=== PATIENT | male | born 2000 | race Caucasian/White ===

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

== ENCOUNTER 2022-02-15 17:46 | Emergency (ER) | payer MEDICAID, SELFPAY ==
[2022-02-15 17:46] VITALS: BP 132/79; PULSE 88; RESP 16; TEMP 36.6; O2SAT 97
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
[2022-02-15 20:10] VITALS: BP 123/76; PULSE 58; RESP 18; O2SAT 100
== END 2022-02-15 20:12 | disposition home or self-care (01) ==
PROVIDERS: Emergency Provider Physician Assistant
DX: R45.89 Other symptoms and signs involving emotional state (principal); Z73.9 Problem related to life management difficulty, unspecified
CPT/HCPCS: 99283; 99282

== ENCOUNTER 2022-04-20 14:42 | Outpatient (CLI) | payer MEDICAID, SELFPAY ==
[2022-04-20 14:46] LABS: Abs Immature Grans 0.01 10^3/uL (0.0-0.06); Absolute Basophil Count 0.03 10^3/uL (0.0-0.2); Absolute Eosinophil Count 0.23 10^3/uL (0.0-0.7); Absolute Lymphocyte Count 1.22 10^3/uL (1.2-3.4); Absolute Monocyte Count 0.72 10^3/uL (0.1-0.8); Absolute Neutrophil Count 6.31 10^3/uL (1.2-6.7); Basophils % 0.4; ESR 2 mm/hr (0-15); Eosinophils % 2.7; HCT 44.8 % (40.0-50.0); HGB 15.1 g/dL (13.5-17.5); Immature Grans % 0.1; Lymphocytes % 14.3; MCHC 33.7 % (32.0-36.0); MCV 86 fL (80-95); MPV 11.5 fL (8.0-11.0); Monocytes % 8.5; Platelet Count 213 10^3/uL (130-400); RDW 12.6 % (11.8-14.1); RDW-SD 39.7 fL; WBC 8.52 10^3/uL (4.4-10.8)
[2022-04-20 15:10] LABS: ALT 53 U/L (16-63); AST 34 U/L (15-37); Albumin 4.3 g/dL (3.4-5.0); Alkaline Phosphatase 108 U/L (46-116); Anion Gap 9.3 mmol/L (3-11); BUN 12 mg/dL (7-18); Bilirubin, Total 0.6 mg/dL (0.2-1.0); C-Reactive Protein 0.85 mg/dL (0.0-0.3); CO2 29.7 mmol/L (21.0-32.0); Calcium 9.4 mg/dL (8.5-10.1); Chloride 105 mmol/L (98-107); Glucose 108 mg/dL (74-106); Potassium 4.6 mmol/L (3.5-5.1); Sodium 144 mmol/L (136-145); TSH (W/Ref FT4) 1.58 uIU/mL (0.52-4.13); Total Protein 8.1 g/dL (6.4-8.2)
== END 2022-04-20 14:43 | disposition home or self-care (01) ==
LOC: LBO 14:43
PROVIDERS: Visit Provider Student in an Organized Health Care Education/Training Program
DX: R63.4 Abnormal weight loss (principal); R10.9 Unspecified abdominal pain; R19.7 Diarrhea, unspecified
CPT/HCPCS: 36415; 80053; 85652; 84443; 85025; 86140

== ENCOUNTER 2022-06-21 16:50 | Emergency (ER) | payer MEDICAID, SELFPAY ==
[2022-06-21 17:04] VITALS: BP 129/85; PULSE 81; RESP 20; TEMP 36.9; O2SAT 98
--- NOTE | 2022-06-21 17:26 | W.ED.GENAD ---
Discharge Plan Disposition Patient Disposition: STILL A PATIENT Condition: Stable Discharge Details Chief Complaint: PsychEval Clinical Impression: Depression with suicidal ideation Primary Care Provider: Zee Gupta ED Provider: Nilson Gonzalez Home Meds and New Rx's Prescriptions: No Action omeprazole 20 mg capsule,delayed release(DR/EC) 20 mg PO DAILY Qty: 60 0RF Label Comments: does not take / short term use Medical Decision Making This is a 22-year-old male presenting with local law enforcement and a crisis team after being called to his home with a warrant to bring him to the ER for involuntary placement secondary to depression, SI with a plan of self-harm with knives. Unfortunately patient is a rather vague and poor historian and much of this information was gathered collaterally. He does admit that he made statements of harming himself and ending it all via text. He has no acute medical concerns or complaints. Using the smart clearance form, laboratory values not indicated. COVID swab no longer required for psychiatric admission. I have requested a mental health evaluation, interim care plan, and a CPSO. All appropriate involuntary certification paperwork completed. I was contacted by mental health who states that they already completed their evaluation at the house, he needs to be medically cleared, and then they will move forward with the psychiatric evaluation and eventual placement.patient is medically cleared. I was contacted once again by the mental health team and Dr. Hilton, psychiatry, after they had completed their second evaluation. He will remain in an involuntary psychiatric placement Patient has tolerated p.o. liquids and was seen ambulating steadily to the restroom. This documentation was generated using [employer] dictation system, please disregard any oddities of phrase or misspellings. Medical Records Medical records reviewed: Yes I reviewed the patient's medical records. HPI General Mode of arrival: ambulatory (With law enforcement). Date/Time Provider Initiated Documentation: 06/21/22 17:15. Limitations to Documentation: no limitations. Information obtained by: patient. HPI Narrative: This is a 22-year-old gentleman who presents to the ER with law enforcement and mental health crisis team for evaluation of depression, SI, with a plan to cut himself with knives. Unfortunately he is a rather vague and poor historian, elusive with answering most of my questions. The majority of the collateral information was obtained through the [facility] crisis team. They state that they have seen a deterioration overall over the past few months, most recently today locked himself in the bedroom with denies, threatened to harm himself, and would not come out until the police had to get into the doorway. Patient tells me that he got into an argument with his mother today and simply went upstairs to fall asleep. He states that he texted that he would harm himself but tells me he did not have any intentions to actually harm himself. He denies trying to harm himself in the past. He denies any acute medical concerns or complaints. Denies recent illness or trauma. Patient denies any self-harm Related Data Home Medications Medication Instructions Recorded Confirmed omeprazole 20 mg capsule,delayed 20 mg PO DAILY #60 caps 04/24/22 04/24/22 release Previous Rx's Medication Instructions Recorded omeprazole 20 mg capsule,delayed 20 mg PO DAILY #60 caps 04/24/22 release Allergies Allergy/AdvReac Type Severity Reaction Status Date / Time pollen extracts Allergy Intermediate HIVES Verified 06/21/22 20:39 cantaloupe Allergy Severe PROBLEMS Uncoded 06/21/22 20:39 BREATHING Fresh Cut Grass Allergy Hives Uncoded 06/21/22 20:39 General Stated Complaint: PsychEval USMAN: 2 Review of Systems Constitutional Constitutional: Denies fever(s), Denies headache(s) and Denies weakness ENT Ears, Nose, Mouth, and Throat: Denies headache(s) Cardiovascular Cardiovascular: Denies chest pain and Denies dyspnea Respiratory Respiratory: Denies cough and Denies dyspnea Gastrointestinal Gastrointestinal: Denies abdominal pain, Denies nausea and Denies vomiting Musculoskeletal Musculoskeletal: Denies back pain Integumentary/Breasts Skin/Breast: Denies rash Neurologic Neurologic: Denies headache(s) and Denies weakness Psychiatric Psychiatric: Reports depression, Denies homicidal ideation and Reports suicidal ideation [facility] All Active Problems (Updated 06/21/22 @ 21:27 by MAISHA Gonsalez) Depression with suicidal ideation (Acute) Weight loss (Acute) Dysthymia (Chronic 02/20/17) mild depression - counseling as a start 02/23 Eczema (Chronic 11/21/15) Environmental allergies (Chronic 11/21/15) grass Food allergy (Chronic 01/04/16) clinical cantaloupe reaction, negative skin test Mild intermittent asthma without complication (Chronic 11/21/15) spirometry 12/23- mild obstruction 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) Family History Mother Mental disorder ANXIETY/DEPRESSION Father Mental disorder ANXIETY/DEPRESSION Grandparents Mental disorder MGF DEPRESSION MGM ANXIETY Social History Smoking/Tobacco Use Status: Never Second Hand Exposure: Yes Smoking risk assessment performed?: Yes Alcohol Intake: never Drug use: Occasionally Substance use type: marijuana Household members: family Pets and animals: Yes Pets and animals: cat(s) Do you feel safe at home: Yes Do you feel safe in your relationship?: Yes Exam Const General: cooperative, healthy appearing, comfortable and no acute distress Orientation: alert, awake and oriented x3 HENMT Head: normal to inspection, normocephalic and atraumatic Face and sinus: normal facial exam Mouth: moist mucous membranes Eyes General: appearance normal, both eyes and all related structures Conjunctivae: conjunctivae normal Neck Neck: normal visual inspection, full ROM, no meningeal signs, trachea midline and supple Resp Effort & Inspection: normal respiratory effort and able to speak in complete sentences Auscultation: clear to auscultation bilaterally Cardio Rate: regular rate Rhythm: regular rhythm GI Palpation: soft and nontender Back/Spine/Pelvis Back: No back tenderness Skin General skin exam: no rashes or lesions noted Neuro General: patient alert, patient awake, patient oriented x3, moves all extremities and no focal motor deficits Cognition: normal cognition Speech: speech normal Gait: normal gait Motor: muscle tone normal throughout Sensory Exam: no sensory deficits noted Extrem General: normal to inspection, full ROM and capillary refill normal Psych Appearance: grossly normal Mental Status: mental status grossly normal Speech and Movement: speech and movement normal Mood: dysthymic mood Affect: sad Attitude: guarded and avoids eye contact Thought Process: normal Thought Content: suicidality Insight: fair Judgment: fair Course Vital Signs Vital signs: Vital Signs Temperature 36.9 C 06/21/22 17:04 Pulse 81 06/21/22 17:04 Respiratory Rate 20 06/21/22 17:04 Blood Pressure 129/85 06/21/22 17:04 Pulse Oximetry 98 06/21/22 17:04 Temperature 36.9 C 06/21/22 17:04 Temperature Source Temporal Artery Scan 06/21/22 17:04 Pulse 81 06/21/22 17:04 Respiratory Rate 20 06/21/22 17:04 Respiratory Effort Non-Labored 06/21/22 17:18 Blood Pressure 129/85 06/21/22 17:04 Blood Pressure Position Sitting 06/21/22 17:04 Pulse Oximetry 98 06/21/22 17:04 Oxygen Delivery Method Room Air 06/21/22 17:04 Oxygen Flow Rate 0 06/21/22 17:04 Pain Level 0 06/21/22 17:04
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
--- NOTE | 2022-06-21 19:46 | NUR.NOTE ---
Nursing Note: Pt politely asked if he was able to get a remote and watch tv. CPSO asked RN if that was a possibility, RN gave permission for access to tv but CPSO had to keep and control the remote. Pt was agreeable with that.
--- NOTE | 2022-06-21 23:45 | RT.EKG_ITS ---
APPROVED REPORT Exam: Resting ECG Reason for Exam: chest pain Patient Location: E HR:50 bpm ECG Measurements Heart Rate 50 AXIS AK 166 P 48 QRSd 86 QRS 39 QT 434 T 49 QTc 397 Conclusion Slow sinus arrhythmia...V-rate 42- 64, mean< 60 Atrial premature complex...SV complex w/ short R-R interval Physiican: no stemi
[2022-06-22] MEDS: diphenhydrAMINE 25 MG CAP 50 MG PO (00:14)
[2022-06-22] MEDS: Melatonin 3 MG TAB 6 MG PO (00:14)
[2022-06-22 00:25] LABS: *AMPHETAMINES SCREEN URINE Negative (Negative); *BARBITURATES SCREEN URINE Negative (Negative); *BENZODIAZEPINES SCREEN URINE Negative (Negative); Cannabinoids THC Positive (Negative); Cocaine Screen,Urine Negative (Negative); METHADONE URINE SCREEN Negative (Negative); OPIATES URINE SCREEN Negative (Negative); Tricyclic Antidepressants Negative (Negative)
[2022-06-22 09:56] LABS: Source Nasal/Nares
--- NOTE | 2022-06-22 10:17 | NUR.NOTE ---
patient wanted to speak with underwriter solicitation director about his concerns for missing a day of work while being in the ED. This underwriter solicitation director gave him options of using a phone to contact the HR department at his job and speak to them about FMLA options. Patient refused a phone he stated I just want to go to work so I don't lose my job. Being here (In the ED) is making my life worse not better
[2022-06-22 10:29] LABS: COVID-19 PCR Negative (Negative)
--- NOTE | 2022-06-22 11:40 | PDOC.CMSAFED ---
- If Service Date Differs Date of service: 06/22/22 Time of Service: 11:48 Care Management Safety Plan Status: Involuntary - Reason for Wait Reason for Wait: Inpatient Admission INVOLUNTARY FOR INPATIENT PSYCHIATRIC STABILIZATION. Per [facility]: Client was brought in on a MH warrant for suicidal ideation. Client locked himself in his room, with knives, and told his mother he was going to off himself. Client was last seen by [facility] on 05/21/22 and safety planned home. Client is not following through with his out patient resources. Toby was appropriate throughout the night and day, he has become dysregulated at times central to stress about losing his job and wanting to leave [facility]; being held against his will. Overall, he has demonstrated the ability to self regulate when upset. He became escalated in tone and speech with [facility] screener and MD; was able to regulate. Appears Toby could benefit from coping skill development as he struggles with emotional expression, however he is exhibiting ability to self regulate as needed, thus far. INVOLUNTARY Safety plan has been established to meet the needs of the patient, and consideration of the care team, to adhere to patient goals, identify restrictions based on behavioral status, address nutrition, and determine allowed personal belongings, tools for hygiene and personal care. Determine level of activity including ambulation, level of supervision, visitors, and determine privileges based on behaviors and level of engagement by pt. INVOLUNTARY SAFETY PLAN: 1. Will remain on SI/HI precautions. In Paper Clothes 2. Will remain in room under direct supervision of one-on-one staff at all times provided by [employer]; FLOOR SPECIALIST, EXTRUSION DIE TEMPLATE MAKER dehydrator tender. 3. May have paper cups, plates, finger foods as well as a cardboard spoon for meals. 4. Follow [facility] Management of the Admitted Behavioral Health Patient policy. 5. Comfort bath system, shower permitted at RN discretion, with escort. 6. No personal belongings at this time. 7. Visitors: Permitted per patients wishes at RN discretion. 8. Activities: Soft cart items, television and remote permitted per RN discretion. 9. Bathroom privileges with escort in the ED, available in room without limitation on Med/Surg 10. Phone: Use of cordless [facility] phone available at RN discretion. 11. Due to INVOLUNTARY status, patient is being held at [facility] by the Department of Mental Health (DMH) until 2nd certification by [facility] Psychiatrist can be performed (within 24 hours). Staff will provide de-escalation support (CPI) as needed. If patient wishes to leave [facility], staff will contact [facility] Crisis Screener ([phone]) and On-Call Drop Crew Laborer ([phone]) as soon as possible. In the event of elopement, notify [facility] Police ([phone]). Patient is currently involuntarily at [facility]. [facility] Frontline Visual Supervisor will continue seeking placement. Please contact the Code Machine Operator Drop Crew Laborer ([phone]) for any needed changes to Safety Plan. Safety plan has been provided to interdepartmental care team. Patient will be transported by [employer] at time of discharge.
--- NOTE | 2022-06-22 11:42 | PDOC.MHPN2 ---
Date of service: 06/22/22 Time of Service: 10:52 PHQ-9 Over the last 2 weeks, how often have you been bothered by any of the following problems? 1. Little interest or pleasure in doing things: not at all 2. Feeling down, depressed, or hopeless: several days 3. Trouble falling or staying asleep, or sleeping too much: not at all 4. Feeling tired or having little energy: not at all 5. Poor appetite or overeating: not at all 6. Feeling bad about yourself - or that you are a failure or have let yourself and your family down: not at all 7. Trouble concentrating on things, such as reading the newspaper or watching television: not at all 8. Moving or speaking so slowly that other people could have noticed? - Or the opposite - being so fidgety or restless that you have been moving around a lot more than usual: not at all 9. Thoughts that you would be better off or of hurting yourself in some way: several days Total score: 2 Source: Developed by Drs. Walker Kraft, Lien Martino, Rajesh Stafford and colleagues, with an educational deni from [employer]. Mental Health Emergency Note Release [facility] release signed:: Yes Reason for Visit Client presented to [facility] ED on 06/21/22 via [facility] and embedded MH worker Lo Yeager after a MH warrant was executed. Client was seen on 06/21 for 2nd certification by psychiatrist from [facility]. In the last 2 weeks has the pt presented for ES prior to today?: Unknown Client Information Client is: Children's Well Housed: Yes Non Suicidal Self Injury Current: No History: yes, Client reports past history of NSSIB's; eg. client reports punching santacruz and smashing his head into santacruz in response to his anger. Safety Risk/Harm to Self or Others Current Ideation to Harm Self or Others: No Asssessment/Mental Status Appearance: Disheveled and Poor hygiene Attitude: Guarded and Hostile (Client became esclated shortly into screening and began yelling and screaming at this scientific technical writer screening was conclued ) Behavior: Agitated Speech: Pressured and Loud Affect: Cogruent with mood Mood: Elevated, Stressed, Anxious and Angry Thought process: Goal directed (Client kept stating he was wanting to leave in order to go to work ) Hallucinations: No evidence Delusions: No evidence Attention: Poor concentration Perception: Not impaired Orientation: Fully orientated Memory: Intact Insight: Fair Judgement: Fair Neurovegetative Symptoms Sleep: Decrease (Client reports he did not fucking sleep last night due to this damn fan) Appetitie: No change (Client reports eating dinner and breakfast since being in ED) Interests: No change Energy: No change Libido: Not applicable Substance Use: Other (This scientific technical writer was unable to assess due to client being escalater ) Impression Client is currently at [facility] ED on involuntary status. Client was brought to ED by VSP on MH warrant on 06/22. Prior to speaking with client, this scientific technical writer gathered collateral from client's attending nurse Charity Barnard. Per Akil's report, this am, client ate his breakfast. Akil reports client disclosed to her that he is worried about losing his job. Akil reports she suggested filling out paperwork for FMLA, Maciej reports client declined her suggestion. Akil reports client has been appropriate behavioral otherwise. This scientific technical writer attempted to reassess client via zoom while client was at [facility] ED. Client denies he is actively endosring SI/HI/NSSI. Client reports, everything is fine I am just super stressed I am about to lose my job. Client reports, I didn't mean what I said to my mom yesterday about killing myself I was just angry. This scientific technical writer asked client if he understood the severity of stating these types of statements. Client reports he does. Client was willing to engage with this scientific technical writer at first, however shortly into the conversation client became escalated a began screaming and sweating at this scientific technical writer. Client reported to this scientific technical writer, you are running my life keeping me here, I am going to lose my job and you don't fucking care. Client went on the further state, I am not staying her another night, if you think I am you're the crazy one, I am going home. This scientific technical writer explained to client that leaving the ED was not an option at this time and if he were attempt to leave AMA, he would be brought back to [facility] and the process for addmission would restart making it longer for client to be placed for MH tx. At this point in the conversation client refused to speak with MH. This scientific technical writer asked for client to bring tablet out to attending provider. After attempting to screen client, this scientific technical writer requested to speak to attending MD. This scientific technical writer spoke with Dr. Kinza Bautista. This scientific technical writer informed Dr. Bautista this scientific technical writer was unable to complete the entirety of assessment due to client becoming escalated. Dr. Bautista responded that when speaking with this scientific technical writer he confirms the client is escalated and just heard him scream from his room. This scientific technical writer informed Dr. Bautista referral will be sent out for placement for client. This scientific technical writer also informed Dr. Bautista to reach back out to if client is requesting to resume screening with ES later in the day. Plan/Disposition Recommended Disposition: Hospitalization facilities contacted. Plan: Client will await in ED until placement can be secured. Person reported agreement to plan: No Facilities contacted if Applicable [facility] Accepted, Pending review. Information Sent to [place]: Referral [facility] Not accepted, Only accepting in house referrals [facility] Accepted, Pending review. Information Sent to [place]: Referral, [facility] Accepted, Accepted/transfer pending. Information Sent to [place]: Referral Reports/communication Outcome discussed with: ED/Personnel (Dr. Kinza Bautista)
--- NOTE | 2022-06-22 14:49 | W.EDPROG ---
Date of service: 06/22/22 Time of Service: 14:49 Medical Decision Making Care was signed out by Dr. Obando with plan to await transfer to inpatient psychiatric treatment facility. Patient upset that he is being held here against his will. Patient requested speaking to the [facility] psychiatrist who performed EE evaluation yesterday. I spoke with care worker Arnoldo at [facility] and relayed this request and was informed that this was not a possibility. Patient request was declined. Mr. Mcdaniels did suggest referring the patient to disability rights and ammonia refrigeration worker at legal activity adjudicator should the patient have questions. Sign Out Sign Out Data: Sign Out Comment: Depression with SI. Medically cleared and mental health evaluation completed. Patient is a involuntary hold until placement can be found Last updated by Nilson Gonzalez PA at 06/21/22 21:27 Sign Out Comment: Depression with suicidal ideations. Patient stable throughout the night. Pending placement. Patient involuntary Last updated by Scotty Obando DO at 06/22/22 07:26 Discharge Plan Disposition Patient Disposition: STILL A PATIENT Condition: Stable Discharge Details Clinical Impression: Depression with suicidal ideation Primary Care Provider: Zee Gupta ED Provider: Min Bautista Home Meds and New Rx's Prescriptions: No Action omeprazole 20 mg capsule,delayed release(DR/EC) 20 mg PO DAILY Qty: 60 0RF Label Comments: does not take / short term use
[2022-06-22] MEDS: LORazepam 1 MG TAB 2 MG PO (19:29)
[2022-06-22 21:12] VITALS: BP 121/79; PULSE 85; RESP 20; TEMP 36.3; O2SAT 93
[2022-06-22] MEDS: diphenhydrAMINE 25 MG CAP PO (22:10)
--- NOTE | 2022-06-23 10:26 | NUR.NOTE ---
Nursing Note: Pt is upset and crying because he is not able to get through to his mother on the phone. Attempted to de-escalate, offer comfort items/food which pt refused. Awaiting morning check in w/ MH
--- NOTE | 2022-06-23 11:02 | PDOC.CMSAFED ---
- If Service Date Differs Date of service: 06/23/22 Time of Service: 11:02 Care Management Safety Plan Status: Involuntary INVOLUNTARY FOR INPATIENT PSYCHIATRIC STABILIZATION. Per [facility]: Client was brought in on a MH warrant for suicidal ideation. Client locked himself in his room, with knives, and told his mother he was going to off himself. Client was last seen by [facility] on 05/21/22 and safety planned home. Client is not following through with his out patient resources. Therefor, Client presented to [facility] ED on 06/21/22 via VSP and embedded MH worker Lo Yeager after a MH warrant was executed. Client was seen on 06/21 for 2nd certification by psychiatrist from [facility] [place] [facility]. INVOLUNTARY Safety plan has been established to meet the needs of the patient, and consideration of the care team, to adhere to patient goals, identify restrictions based on behavioral status, address nutrition, and determine allowed personal belongings, tools for hygiene and personal care. Determine level of activity including ambulation, level of supervision, visitors, and determine privileges based on behaviors and level of engagement by pt. INVOLUNTARY SAFETY PLAN: 1. Will remain on SI/HI precautions. In Paper Clothes 2. Will remain in room under direct supervision of one-on-one staff at all times provided by [employer]; INGRID, PROFESSOR OF ENVIRONMENTAL SCIENCE welding estimator. 3. May have paper cups, plates, finger foods as well as a cardboard spoon for meals. 4. Follow [facility] Management of the Admitted Behavioral Health Patient policy. 5. Comfort bath system, shower permitted at RN discretion, with escort. 6. No personal belongings at this time. 7. Visitors: Permitted per patients wishes at RN discretion. 8. Activities: Soft cart items, television and remote permitted per RN discretion. 9. Bathroom privileges with escort in the ED, available in room without limitation on Med/Surg 10. Phone: Use of cordless [facility] phone available at RN discretion. 11. Due to INVOLUNTARY status, patient is being held at [facility] by the Department of Mental Health (DM) until 2nd certification by [facility] Psychiatrist can be performed (within 24 hours). Staff will provide de-escalation support (CPI) as needed. If patient wishes to leave [facility], staff will contact [facility] Crisis Screener ([phone]) and On-Call Examiner Rating Clerk ([phone]) as soon as possible. In the event of elopement, notify [facility] Police ([phone]). Patient is currently involuntarily at [facility]. [facility] Frontline Door And Arrival Attendant will continue seeking placement. Please contact the Assistant Banquet Manager Examiner Rating Clerk ([phone]) for any needed changes to Safety Plan. Safety plan has been provided to interdepartmental care team. Patient will be transported by cash manager at time of discharge.
[2022-06-23] MEDS: diphenhydrAMINE 25 MG CAP 50 MG PO (22:12)
--- NOTE | 2022-06-23 22:18 | NUR.NOTE ---
Nursing Note: PT's mother: Tori Lalai [address] [place] [phone].
[2022-06-23] MEDS: Acetaminophen 500 MG TAB ×2 (23:04→23:05)
--- NOTE | 2022-06-24 06:57 | NUR.NOTE ---
Nursing Note: Patient stated he is sick and tired of being in this f'ing place and they are still going to make me get treatment for a mental illness he doesn't have and that he is done being f'ing nice! Patient stated that he wants to talk to a mental health worker and his mother.
--- NOTE | 2022-06-24 08:37 | NUR.NOTE ---
Patient speaking to mother on phone. Patient informing mother that he lost his job and is no longer able to afford his bills. Patient telling mother he does not need to be hospitalized and that she is wrong. Patient stating that his text was an empty threat and that he didn't mean it and fell asleep shortly after sending text. Patient also feels as though staff does not care about patient's needs and that he needs to come home and work on finding a therapist and receiving medications from his PCP. Patient states please be on my side, don't let them hospitalize me. I can't do that.
--- NOTE | 2022-06-24 10:06 | NUR.NOTE ---
Min patient's father called looking for an update. Father is not on his hippa form. patient refused to speak to father. Father left his cell number [phone]
[2022-06-24] MEDS: LORazepam 0.5 MG TAB PO ×2 (11:26→17:10)
--- NOTE | 2022-06-24 13:35 | PDOC.MHPN2 ---
Date of service: 06/24/22 Time of Service: 10:00 Mental Health Emergency Note Release [facility] release signed:: Yes Reason for Visit Client presented to [facility] ED on 06/21/22 via VSP and [facility] embedded worker Lo Yeager after a MH warrant was executed. Client was seen in the evening on 06/21/22 by , psychiatrist from [facility] where his 2nd certification passed. Client is currently on involuntary status and is seen this morning for daily re-assessment. In the last 2 weeks has the pt presented for ES prior to today?: No Client Information Client is: Children's Well Housed: Yes Non Suicidal Self Injury Current: No History: No Safety Risk/Harm to Self or Others Current Ideation to Harm Self or Others: Yes to self. Intent: no, has no intent. Plan: no.does not have a plan. History of suicide attempt: No history of suicide attempt reported Risk: Does risk to harm exist?: yes. Risk: Moderate Risk Duty to warn indicated: No Asssessment/Mental Status Appearance: Disheveled Attitude: Guarded Behavior: Agitated Speech: Normal Affect: Flat and Cogruent with mood Mood: Elevated, Stressed, Depressed and Irritable Thought process: Racing Hallucinations: No Delusions: No Attention: Unremarkable Perception: Not impaired Orientation: Fully orientated Memory: Intact Insight: Fair Judgement: Fair Neurovegetative Symptoms Sleep: Decrease (Client reports that he has needed to take medications to help him sleep since being at the hospital. ) Appetitie: No change Interests: No change Energy: No change Libido: Not applicable Substance Use: Do you use nicotine?: No Have you used substances in the last 7 days?: No Additional Issues: Assaultive/Threatening Behavior: No Medical Concerns: No Client engaged in active self harm w/weapon: No Threatening to run away: Yes Child reported abuse/neglect: No Voluntarily presenting for services: No Domestic violence is a concern: No Extreme Psychosis or extreme behavior is present: No Impression Client is a 22 y/o single caucasion male that currently lives with his mother and siblings in [place], [place]. 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 Client presents with symptoms that are congruent with depression as evidenced by a decrease in sleep and lack of interest in doing things that he typically enjoys doing. Client is inconsistent in his answers on family dynamics with his mother stating: it is her own mental health and nothing to do with me. She pushes me over the edge. This flex o writer operator asks client about 2 page suicide note that he had written and handed to his 10y/o sibling about a week ago. Client reports: I did not mean what I said in the letter, but it felt good to get it off from my chest. Client reports he would never do anything to harm himself unless something traumatic happened to one of his family members. Client is beginning to take ownership of events that occured prior to him coming to [facility] on mental helath warrant, however is still not taking full ownership and blaming others for his actions. Client would benefit from inpateint services for medication management, therapy, and to establish coping skills that he can utilize when he is escalted and angry with things that are happening at home. Plan/Disposition Recommended Disposition: Hospitalization (Referrals have been faxed to [facility], [facility], , and [facility] ) facilities contacted. Plan: Client is beginning to take owenership of actions that brought him to [facility] ED on MH warrant, however is still blaming other family members for what took place and believes that they are blowing it out or proportion. Client will remain at [facility] ED on involuntary status pending admission to an inpatient facility. If client continues to show improved insight and judgment safety planning home could be explored within the next few days. Person reported agreement to plan: No Facilities contacted if Applicable [facility] Not accepted, (Referral under review, however currently no beds available) No bed available [facility] Not accepted, Only accepting in house referrals [facility] (under review) Not accepted, No bed available, [facility] Not accepted, [facility] Reports/communication Outcome discussed with: ED/Personnel (Verbal passover given to ED provider Jero) Final Disposition/Discharge Transportation Checklist completed and faxed: No
--- NOTE | 2022-06-24 14:30 | CMSP_ITS ---
- If Service Date Differs Date of service: 06/24/22 Time of Service: 14:30 Care Management Safety Plan Status: Involuntary - Reason for Wait Reason for Wait: Inpatient Admission Per [facility]: Client was brought in on a MH warrant for suicidal ideation. Client locked himself in his room, with knives, and told his mother he was going to off himself. Client was last seen by [facility] on 05/21/22 and safety planned home. Client is not following through with his out patient resources. Therefor, Client presented to [facility] ED on 06/21/22 via VSP and embedded MH worker Lo Yeager after a MH warrant was executed. Client was seen on 06/21 for 2nd certification by psychiatrist from [facility]. 06/24/22 CM spoke with [facility] Crisis Screener. Patient will remain at [facility] for involuntary psych placement. Per Tasia, contact is being made to all facilities today. At this time. [facility] has no bed availability. INVOLUNTARY Safety plan has been established to meet the needs of the patient, and consideration of the care team, to adhere to patient goals, identify restrictions based on behavioral status, address nutrition, and determine allowed personal belongings, tools for hygiene and personal care. Determine level of activity including ambulation, level of supervision, visitors, and determine privileges based on behaviors and level of engagement by pt. INVOLUNTARY SAFETY PLAN: 1. Will remain on SI/HI precautions. In Paper Clothes 2. Will remain in room under direct supervision of one-on-one staff at all times provided by [employer]; INGRID, PROJECT CONSTRUCTION MANAGER elevator constructor. 3. May have paper cups, plates, finger foods as well as a cardboard spoon for meals. 4. Follow [facility] Management of the Admitted Behavioral Health Patient policy. 5. Comfort bath system, shower permitted at RN discretion, with escort. 6. No personal belongings at this time. 7. Visitors: Permitted per patients wishes at RN discretion. 8. Activities: Soft cart items, television and remote permitted per RN discretion. 9. Bathroom privileges with escort in the ED, available in room without limitation on Med/Surg 10. Phone: Use of cordless [facility] phone available at RN discretion. 11. Due to INVOLUNTARY status, patient is being held at [facility] by the Department of Mental Health (DMH) until 2nd certification by [facility] Psychiatrist can be performed (within 24 hours). Staff will provide de-escalation support (CPI) as needed. If patient wishes to leave [facility], staff will contact [facility] Crisis Screener ([phone]) and On-Call Nutrition Services Aide ([phone]) as soon as possible. In the event of elopement, notify [facility] Police ([phone]). Patient is currently involuntarily at [facility]. [facility] Frontline Special Education Director will continue seeking placement. Please contact the Card Mounter Nutrition Services Aide ([phone]) for any needed changes to Safety Plan. Safety plan has been provided to interdepartmental care team. Patient will be transported by [facility] at time of discharge.
--- NOTE | 2022-06-24 14:30 | PDOC.CMSAFED ---
- If Service Date Differs Date of service: 06/24/22 Time of Service: 14:30 Care Management Safety Plan Status: Involuntary - Reason for Wait Reason for Wait: Inpatient Admission Per [facility]: Client was brought in on a MH warrant for suicidal ideation. Client locked himself in his room, with knives, and told his mother he was going to off himself. Client was last seen by [facility] on 05/21/22 and safety planned home. Client is not following through with his out patient resources. Therefor, Client presented to [facility] ED on 06/21/22 via VSP and embedded MH worker Lo Yeager after a MH warrant was executed. Client was seen on 06/21 for 2nd certification by psychiatrist from [facility]. 06/24/22 CM spoke with [facility] Crisis Screener. Patient will remain at [facility] for involuntary psych placement. Per Tasia, contact is being made to all facilities today. At this time. [place] has no bed availability. INVOLUNTARY Safety plan has been established to meet the needs of the patient, and consideration of the care team, to adhere to patient goals, identify restrictions based on behavioral status, address nutrition, and determine allowed personal belongings, tools for hygiene and personal care. Determine level of activity including ambulation, level of supervision, visitors, and determine privileges based on behaviors and level of engagement by pt. INVOLUNTARY SAFETY PLAN: 1. Will remain on SI/HI precautions. In Paper Clothes 2. Will remain in room under direct supervision of one-on-one staff at all times provided by [employer]; INGRID, FABRICATION WELDER rabbet operator. 3. May have paper cups, plates, finger foods as well as a cardboard spoon for meals. 4. Follow [facility] Management of the Admitted Behavioral Health Patient policy. 5. Comfort bath system, shower permitted at RN discretion, with escort. 6. No personal belongings at this time. 7. Visitors: Permitted per patients wishes at RN discretion. 8. Activities: Soft cart items, television and remote permitted per RN discretion. 9. Bathroom privileges with escort in the ED, available in room without limitation on Med/Surg 10. Phone: Use of cordless [facility] phone available at RN discretion. 11. Due to INVOLUNTARY status, patient is being held at [facility] by the Department of Mental Health (DMH) until 2nd certification by [facility] Psychiatrist can be performed (within 24 hours). Staff will provide de-escalation support (CPI) as needed. If patient wishes to leave [facility], staff will contact [facility] Crisis Screener ([phone]) and On-Call Sandblaster Stone ([phone]) as soon as possible. In the event of elopement, notify [facility] Police ([phone]). Patient is currently involuntarily at [facility]. [facility] Frontline Class A Regional Truck Driver will continue seeking placement. Please contact the Job Captain Sandblaster Stone ([phone]) for any needed changes to Safety Plan. Safety plan has been provided to interdepartmental care team. Patient will be transported by [facility] at time of discharge.
[2022-06-24] MEDS: Melatonin 3 MG TAB 6 MG PO (20:08)
[2022-06-24] MEDS: Melatonin 3 MG TAB PO (20:17)
--- NOTE | 2022-06-25 08:53 | ED.PROG_ITS ---
Date of service: 06/25/22 Time of Service: 07:30 Medical Decision Making Patient signed out to me at time of shift change by Dr. Obando with inpatient placement pending. I discussed patient presentation with Dr. Sanchez from [facility]. Dr. Sanchez is accepting physician. Patient signed out to Dr. Cha at time of shift change awaiting transport. Medical Records Medical records reviewed: Yes I reviewed the patient's medical records. Sign Out Sign Out Data: Sign Out Comment: Depression with SI. Medically cleared and mental health evaluation completed. Patient is a involuntary hold until placement can be found Last updated by Nilson Gonzalez PA at 06/21/22 21:27 Sign Out Comment: Depression with suicidal ideations. Patient stable throughout the night. Pending placement. Patient involuntary Last updated by Scotty Obando DO at 06/22/22 07:26 Sign Out Comment: EE, depression and SI. Pending placement. Last updated by Min Bautista MD at 06/22/22 15:16 Sign Out Comment: Ativan this evening, took HS meds. EE. Last updated by Gold Arango MD at 06/22/22 22:59 Sign Out Comment: Stable throughout the evening. No interventions needed. EE. Pending placement. Last updated by Scotty Obando DO at 06/23/22 07:08 Sign Out Comment: EE. Now denying SI. [facility] contacted again for re-eval to consider dispo home with safety plan, staff speaking with supervisor drilling and shooting to discuss walkoff Last updated by Joseluis Ortiz MD at 06/23/22 20:27 Sign Out Comment: Currently denying suicidal ideations. Pending reeval by mental health. No interventions needed this evening. Last updated by Scotty Obando DO at 06/24/22 07:12 Sign Out Comment: EE. Awaiting re-eval in AM, may consider safety plan Last updated by Joseluis Ortiz MD at 06/24/22 20:17 Sign Out Comment: Patient stable throughout the night. No interventions needed. Reassessed by mental health this morning for potential walk off Last updated by Scotty Obando DO at 06/25/22 07:22 Discharge Plan Disposition Patient Disposition: STILL A PATIENT Condition: Stable Discharge Details Clinical Impression: Depression with suicidal ideation Primary Care Provider: Zee Gupta ED Provider: Megan Bautista Home Meds and New Rx's Prescriptions: No Action omeprazole 20 mg capsule,delayed release(DR/EC) 20 mg PO DAILY Qty: 60 0RF Label Comments: does not take / short term use
--- NOTE | 2022-06-25 11:13 | PDOC.MHPN2 ---
Date of service: 06/25/22 Time of Service: 11:27 Mental Health Emergency Note Release [facility] release signed:: Yes Reason for Visit Client is currently on EE status at [facility] due to him locking himself in his room, with access to knives, and not responding. In the last 2 weeks has the pt presented for ES prior to today?: Unknown Client Information Client is: [facility]: Yes Non Suicidal Self Injury Current: No History: No Safety Risk/Harm to Self or Others Current Ideation to Harm Self or Others: No Risk: Does risk to harm exist?: No Risk: N/A Duty to warn indicated: No Asssessment/Mental Status Appearance: Disheveled and Poor hygiene Attitude: Demanding and Guarded Behavior: Agitated Speech: Normal Affect: Cogruent with mood Mood: Stressed, Anxious and Irritable Thought process: Goal directed Hallucinations: No evidence Delusions: No evidence Attention: Unremarkable Perception: Not impaired Orientation: Fully orientated Memory: Intact Insight: Fair Judgement: Fair Neurovegetative Symptoms Sleep: No change Appetitie: No change Interests: No change Energy: No change Libido: Not applicable Substance Use: Do you use nicotine?: No Have you used substances in the last 7 days?: No Additional Issues: Assaultive/Threatening Behavior: No Medical Concerns: No Client engaged in active self harm w/weapon: No Threatening to run away: No Voluntarily presenting for services: No Domestic violence is a concern: No Impression ZEN reports he is doing okay, but he wants to go home. ZEN reports he is not currently endorsing SI/HI/NSSI and has not endorsed in four or five months. This clinician asked for clarification regarding his SI due to his recent two page suicide note in addition to the suicidal text messages he sent. ZEN reports he did not mean any of that, he was angry. ZEN reports when he is angry he makes SI statements towards mom because they normally 'deescalate her' and make her not be angry with him anymore. This clinician explained why using SI as a form of manipulation is not okay and can be scary for others to hear. ZEN reports he knows that. ZEN is asking for outpatient services instead of going to treatment; this clinician will discuss with ES team and family. ZEN reports he is unsure how many hours he slept last night and that the food at the hospital is awful making him not be able to eat three meals a day. KL remains flat, short, and demanding with this clinician. Plan/Disposition Recommended Disposition: Hospitalization facilities contacted and Other. Plan: This clinician is going to touch base with ES team regarding KL and his plan moving forward. KL shows insight and reports he made SI statements out of anger and as a form of 'deescalation'. This clinician is also going to attempt to have a conversation with mom regarding KL and his treatment. This clinican will update [facility] if there is any progress on KL. ZEN is still on the list for involuntary hospitalization throughout this time. KL is not in agreeance to treatment. Person reported agreement to plan: No Facilities contacted if Applicable [facility] Not accepted, No bed available [facility] Not accepted, No bed available [facility] Not accepted, Only accepting in house referrals, [facility] Not accepted, No bed available Reports/communication Outcome discussed with: Other (Angeli from Care Managment)
[2022-06-25 16:43] LABS: *AMPHETAMINES SCREEN URINE Negative (Negative); *BARBITURATES SCREEN URINE Negative (Negative); *BENZODIAZEPINES SCREEN URINE Negative (Negative); Cannabinoids THC Positive (Negative); METHADONE URINE SCREEN Negative (Negative); OPIATES URINE SCREEN Negative (Negative); Tricyclic Antidepressants Negative (Negative)
[2022-06-25 16:54] LABS: Cocaine Screen,Urine Negative (Negative)
--- NOTE | 2022-06-25 18:17 | PDOC.ERCMPRO ---
- If Service Date Differs Date of service: 06/25/22 Time of Service: 18:17 Care Management Progress Note Toby remains in involuntary status awaiting placement in a psychiatric facility. He advocated for discharge home with OP services when screened by [facility] today but his request was denied. He has been accepted at [facility] and will transport via [facility] sometime around 6 pm.
--- NOTE | 2022-06-25 19:02 | ED.PROG_ITS ---
Date of service: 06/25/22 Time of Service: 19:02 Medical Decision Making patient calm during my time on shift, [facility] here to transport to [place], stable at d/c Sign Out Sign Out Data: Sign Out Comment: Depression with SI. Medically cleared and mental health evaluation completed. Patient is a involuntary hold until placement can be found Last updated by Nilson Gonzalez PA at 06/21/22 21:27 Sign Out Comment: Patient signed out to Dr. Cha at time of shift change with transport to [facility] this evening at 630 pending Last updated by Megan Bautista MD at 06/25/22 16:29 Sign Out Comment: Depression with suicidal ideations. Patient stable throughout the night. Pending placement. Patient involuntary Last updated by Scotty Obando DO at 06/22/22 07:26 Sign Out Comment: EE, depression and SI. Pending placement. Last updated by Min Bautista MD at 06/22/22 15:16 Sign Out Comment: Ativan this evening, took HS meds. EE. Last updated by Gold Arango MD at 06/22/22 22:59 Sign Out Comment: Stable throughout the evening. No interventions needed. EE. Pending placement. Last updated by Scotty Obando DO at 06/23/22 07:08 Sign Out Comment: EE. Now denying SI. [facility] contacted again for re-eval to consider dispo home with safety plan, staff speaking with pig machine supervisor to discuss walkoff Last updated by Joseluis Ortiz MD at 06/23/22 20:27 Sign Out Comment: Currently denying suicidal ideations. Pending reeval by mental health. No interventions needed this evening. Last updated by Scotty Obando DO at 06/24/22 07:12 Sign Out Comment: EE. Awaiting re-eval in AM, may consider safety plan Last updated by Joseluis Ortiz MD at 06/24/22 20:17 Sign Out Comment: Patient stable throughout the night. No interventions needed. Reassessed by mental health this morning for potential walk off Last updated by Scotty Obando DO at 06/25/22 07:22 Discharge Plan Disposition Patient Disposition: [facility] Condition: Stable Discharge Details Clinical Impression: Depression with suicidal ideation Primary Care Provider: Zee Gupta ED Provider: Jori Cha [place] Meds and New Rx's Prescriptions: No Action omeprazole 20 mg capsule,delayed release(DR/EC) 20 mg PO DAILY Qty: 60 0RF Label Comments: does not take / short term use
== END 2022-06-25 19:04 | disposition short-term general hospital (02) ==
PROVIDERS: Physician Assistant; Student in an Organized Health Care Education/Training Program; Emergency Provider Emergency Medicine
DX: F32.A Depression, unspecified (principal)
CPT/HCPCS: 80307; 87635; 93005; 99285; H0046; 93010